=== PATIENT | female | born 2000 | race Caucasian/White ===

== ENCOUNTER 2025-04-10 14:43 | Emergency (ER) | payer OTHER ==
[~2025-04-10] VITALS: Ht 165.1 cm; Wt 81.6 kg
[2025-04-10] MEDS ORDERED: CYCL10TA9 PO (20:32)
[2025-04-10] MEDS ORDERED: IBUP-1490 PO (20:32)
[2025-04-10] MEDS: BACI/NEOM/POLY B OINT PKT 1 UDPKT PACKET TP ONE (21:17)
[2025-04-10] MEDS: IBUPROFEN 600 MG TABLET PO ONE (21:17)
[2025-04-10 21:18] VITALS: BP 124/77; TEMP 98; O2SAT 99
[2025-04-10] MEDS ORDERED: BACI/NEOM/POLY B OINT PKT 1 UDPKT PACKET ONE (21:18)
[2025-04-10] MEDS ORDERED: IBUPROFEN 600 MG TABLET ONE (21:19)
== END 2025-04-10 21:18 | disposition home or self-care (01) ==
LOC: ER 16:30
DX: S16.1XXA Strain of muscle, fascia and tendon at neck level, initial encounter (principal); S51.811A Laceration without foreign body of right forearm, initial encounter; S60.212A Contusion of left wrist, initial encounter; M48.02 Spinal stenosis, cervical region; V98.8XXA Other specified transport accidents, initial encounter; Y93.89 Activity, other specified; Y92.410 Unspecified street and highway as the place of occurrence of the external cause; Y99.8 Other external cause status
CPT/HCPCS: 70450-TC; 71045-TC; 72125-TC; 73090-TC; 73110; 73630-TC